=== PATIENT | female | born 1940 | race Caucasian/White ===

== ENCOUNTER 2020-10-31 10:21 | Outpatient (CLI) | payer MEDICARE | END 2020-10-31 10:22 | disposition home or self-care (01) | LOC: CSHMRI 10:21 | PROVIDERS: ATTEND Specialist | DX: M51.16 Intervertebral disc disorders with radiculopathy, lumbar region (principal); M47.816 Spondylosis without myelopathy or radiculopathy, lumbar region; Z98.890 Other specified postprocedural states | CPT/HCPCS: 72148 ==